=== PATIENT | female | born 1950 | race Caucasian/White ===

== ENCOUNTER → 2016-11-04 | Outpatient (CLI) | payer OTHER ==
[~2016-11-04] MED LIST: ACYCLOVIR 200200 MG PO; ASPIRIN325 PO; ATENOLOL 25 MG25 M1 PO; ATENOLOL 50MG T50 MG PO; BAYER ASPIRIN325 M1 PO; CALCIUM +D & M1 EAC1 PO; CARDIZEM CD120 MG PO; CIPROFLOXACIN500 M1 PO; ESTROVEN JOINT1 EACH PO; FELDENE20 MG PO; FIBER LAX625 MG PO; FLECAINIDE ACE100 MG PO; FUROSEMIDE 20 M20 MG PO; MECLIZINE HCL25 M1 PO; MULTIVITAMINS PO; NORCO 5-325 TA1 EACH PO; PRADAXA150 MG PO; PRAVACHOL40 MG PO; REFLUX MED; SIMVASTATIN20 MG PO; SPIRONOLACTONE25 M1 PO; VITAMINC500 PO; ZOFRAN4 MG PO; [UNRECOGNIZED DRUG - OTHER] PO
== END ==
LOC: CAT 16:35
DX: M47.814 Spondylosis without myelopathy or radiculopathy, thoracic region (principal); I70.0 Atherosclerosis of aorta; Z90.49 Acquired absence of other specified parts of digestive tract; I51.7 Cardiomegaly; K44.9 Diaphragmatic hernia without obstruction or gangrene; R91.1 Solitary pulmonary nodule

== ENCOUNTER → 2018-01-20 | Outpatient (CLI) | payer OTHER | LOC: CAT 08:33 | DX: R10.13 Epigastric pain (principal) ==